=== PATIENT | male | born 1990 | race African-American/Black ===

== ENCOUNTER 2025-11-13 09:49 | Emergency (ER) | payer BC, SELFPAY ==
[2025-11-13 10:00] VITALS: BP 146/84; PULSE 98; RESP 20; TEMP 36.7; O2SAT 100
--- NOTE | 2025-11-13 10:06 | ED_ITS ---
HPI - Male Genitourinary General Chief complaint: Urogenital-Male Stated complaint: Urinary Problem Time Seen by Provider: 11/13/25 10:10 Source: patient, RN notes reviewed and old records reviewed Mode of arrival: ambulatory Limitations: no limitations History of Present Illness HPI Narrative: 35year old male presents to express care with some stinging with urination and frequency for a few days and since yesterday has had some right lower back pain. Patient has been taking AZO for his symptoms with last dose early today and has also drank some Pedialyte. Patient denies any penis discharge states that he benavidez s had unprotected intercourse with 2 woman over past months and would like checked for STD's. Patient reports that he has had an urinary tract infection in the past. Patient reports no pain swelling or any testicle pain. MD Complaint: dysuria (frequency, right lower back pain yesterday) Onset (ago): day(s) (few days) Severity scale (1-10): 4 Quality: other (sting) Related Data Home Medications ?Medication ?Instructions ?Recorded ?Confirmed ?Last Taken ?Type aripiprazole 2 mg tablet mg 11/13/25 Unknown History buspirone 15 mg tablet mg 11/13/25 Unknown History fluoxetine 10 mg capsule mg 11/13/25 Unknown History Allergies Allergy/AdvReac Type Severity Reaction Status Date / Time No Known Allergies Allergy Verified 11/13/25 10:08 Review of Systems Review of Systems: CONSTITUTIONAL: Denies fever, chills, or sweats. CARDIOVASCULAR: Denies chest pain, palpitations, or edema. RESPIRATORY: Denies cough or dyspnea. GASTROINTESTINAL: Denies abdominal pain, nausea, vomiting, or diarrhea. GENITOURINARY: Reports dysuria, frequency, urgency. reports some right flank pain denies any hematuria. SKIN: Denies rash or itching. MUSCULOSKELETAL: right lower back pain or myalgia. right CVA tenderness NEUROLOGIC: Denies headache All systems reviewed & are unremarkable except as noted in HPI and below PMFSH Past Medical History Medical History (Updated 11/13/25 @ 19:07 by Kayleen Heaton APRN) Bipolar 1 disorder Depression Anxiety Social History Social History (Updated 11/13/25 @ 19:04 by Kayleen Heaton APRN) Smoking status: Current every day smoker Tobacco type: cigarettes Alcohol intake: current Alcohol use details: rare alcohol Substance use type: marijuana Living arrangements: with family Gender identity (if verbalized by the patient): Male Comments At time of signature, agree with nursing past medical, surgical, social and family history. There is no relevant family history pertinent to the presenting complaint Exam Narrative: GENERAL: Well-appearing, well-nourished, and in no acute distress. HEAD: Normocephalic, atraumatic. NECK: Supple.no lymphadenopathy CHEST: Clear to auscultation. No respiratory distress.SAO2 100% on room air HEART: Regular rate and rhythm. No murmur heard. Normal peripheral pulses. ABDOMEN: Soft, nontender, nondistended, normal active bowel sounds. right CVA tenderness with stinging with urination with no penis drainage or any pain swelling or redness to testicles EXTREMITIES: Normal range of motion. No edema. SKIN: Warm, dry, no rash. NEURO: No focal deficits. Alert and oriented x3. Course Course Level of Care: Express Care Visit Vital Signs Vital signs: Vital Signs Temperature 36.7 C 11/13/25 10:00 Pulse Rate 98 11/13/25 10:00 Respiratory Rate 20 11/13/25 10:00 Blood Pressure 146/84 H 11/13/25 10:00 Pulse Oximetry 100 11/13/25 10:00 Oxygen Delivery Room Air 11/13/25 10:00 Temperature 36.7 C 11/13/25 10:00 Pulse Rate 98 11/13/25 10:00 Respiratory Rate 20 11/13/25 10:00 Blood Pressure 146/84 H 11/13/25 10:00 Pulse Oximetry 100 11/13/25 10:00 Oxygen Delivery Room Air 11/13/25 10:00 reviewed [facility] Narrative Medical decision making narrative: Patient reports to Express care with complaints of stinging with urination for a few days with some right flank pain yesterday, urine dip with no leukocytes or blood noted with culture sent. Patient also request urine for STD's sent. Patient reports not testicle pain swelling or redness denies any discharge. Anticipatory guidance and reasons to seek care in the ED reviewed with patient. Differential Diagnosis Differential Diagnosis: Differential diagnostic considerations for male genitourinary issues include urinary tract infection, priapism, epididymitis, prostatitis, acute retention of urine, inguinal hernia, STI exposure, testicular torsion, Mary Jo?s gangrene. Lab Data [facility] Lab Attestation statement: I personally reviewed the patient's lab results. Lab results narrative: urine dip reviewed with urine yellow and cloudy. culture sent urine for STD's sent and results pending for Gonorrhea. chlamydia, trichomonas Labs: Lab Results 11/13/25 Range/Units 10:14 POC Urine Color Yellow POC Urine Clarity Cloudy POC Urine pH 7.0 POC Ur Specif Fifty Six 1.020 POC Urine Protein Negative (Negative) POC Ur Glucose (UA) Negative (Negative) POC Urine Ketones Negative (Negative) POC Urine Blood Negative (Negative) POC Urine Nitrite Negative (Negative) POC Urine Bilirubin Negative (Negative) POC Urine Urobilinogen 1.0 POC U Leukocyte Esteras Negative (Negative) reviewed Critical Care Time Critical Care Time Critical Care Time: No Discharge Plan Discharge Clinical Impression: Urethritis, Screening for STDs (sexually transmitted diseases) Patient Disposition: Home Condition: Stable Instructions: Sexually Transmitted Diseases (ED), Urethritis (ED) Additional Instructions: Increase fluids especially cranberry juice and water Avoid caffeine and carbonated beverage Tylenol/ibuprofen for pain or fever Follow-up with her primary care provider if further problems or concerns Recheck if you have fever over 101, nausea and vomiting. urine will be sent for STDs and you will be notified as soon as available results and after treatment is required prescriptions will be sent If your symptoms persist, change or worsen significantly before you can contact your personal physician then please, without delay, go to the emergency department for further evaluation. Follow-up with PCP in 7-10 days or sooner if needed Follow up with PCP soon in regards to your blood pressure which is elevated above threshold for referral. Blood pressure above 120/80 may indicate pre- hypertension.146/64 abstain from sexual activity until STD results are available if positive must abstain from sex for 2 weeks after completion of antibiotics Use condoms Patient Language: Uzbek Prescriptions: No Action fluoxetine 10 mg capsule buspirone 15 mg tablet aripiprazole 2 mg tablet Follow-up/Referrals: PHYSICIAN,BLENDER/BRAZE APPLICATOR [Primary Care Provider, Internal Medicine] Time of Disposition: 10:35 Quality Yuniel Coma Scale Eyes: Open Verbal: Oriented and Alert Motor: Follows Commands [place] Coma Total Score: 15
--- OUTSIDE RECORDS SUMMARY | 2025-11-13 10:10 | XMS_ITS | Encounter Summary ---
Author Organization [facility] Address [address] [place] [address] Care Team Providers Care Composite Science Teacher Name Role Phone Alverto Boss MD Primary Care Provider Encounter Details Date Type Department Care Team (Late st Contact Info) Description 09/16/2019 Telephone [facility] ANESTHESIOLOGY [address] [place] [address] Bang Lew MD [address] [place] [address] Social History Tobacco Use Types Packs/Day Years Used Date Smoking Tobacco: Every Day Cigarettes 0.5 9 Smokeless Tobacco: Never Alcohol Use Standard Drinks/Week Comments Yes 1 (1 standard drink = 0.6 oz pur e alcohol) socially/occasionally Sex and Gender Information Value Date Recorded Sex Assigned at Not on file Legal Sex Male 7:03 PM CDT Gender Identity Not on file Sexual Orientation Not on file documented as of this encounter Miscellaneous Notes * Telephone Encounter - Bang Lew MD - 09/16/2019 3:16 PM CDT Called patient about interscalene nerve catheter, patient reports good postoperative analgesia withthe nerve catheter, rates his pain as 5/10 with some moderate motor blockade. No issues with tenderness at the site, no shortness of breath or significant paresthesias. Bang Lew MD Anesthesia PGY 4 09/16/2019 3:17 PM documented in this encounter Plan of Treatment Not on file documented as of this encounter Visit Diagnoses Not on filedocumented in this encounter Care Teams Composite Science Teacher Relationship Specialty Start Date End Date Alverto Boss MD [address] [place] [id number] PCP - General Internal Medicine 04/03/18 documented as of this encounter
--- OUTSIDE RECORDS SUMMARY | 2025-11-13 10:10 | XMS_ITS | Clinical Summary ---
Author Organization [facility] Address [address] [place] [address] Care Team Providers Care Night Baker Name Role Phone Alverto Boss MD Primary Care Provider [phone] Source Comments [facility],non-owned Affiliates and Associated Physician Practices is amultiple site organization consisting of ambulatory clinics and hospital sitesin [place], [place], [place] and [place]. This disclosure is being madepursuant to the Care Everywhere program and may not contain all information available regarding this patient. Last updated 18.[facility] Allergies Active Allergy Reactions Criticality Noted Date Comments Morphine Nausea and/or Vomiting Low 07/09/2019 Medications * Be aware that medications may not be up to date on this document. Alwaysverify current medications with the patient. escitalopram (LEXAPRO) 10 MG tablet TAKE 1 TABLET BY MOUTH EVERY DAY IN THE EVENING 2 9 Active busPIRone (BUSPAR) 10 MG tablet Take 10 mg by mouth 3 times daily Active HYDROcodone-nhung taminophen (NORCO) 5-325 MG tabletIndicatio ns:Moderate to Moderately Severe Pain Take 1 tablet by mouth every 4 hours as needed for Pain Reasons: Moderate to Moderately Severe Pain 40 tablet 9 Active ketorolac (TORADOL) 10 MG tablet Take 1 tablet by mouth every 4 hours as needed for Pain 30 tablet 9 Active Active Problems Problem Noted Date Diagnosed Date Post-op pain Social History Tobacco Use Types Packs/Day Years [...] on file Sexual Orientation Not on file Last Filed Vital Signs Vital Sign Reading Time Taken Comments Blood Pressure 142/75 09/15/2019 1:10 PM CDT Pulse 66 09/15/2019 1:10 PM CDT Temperature 36.7 C (98 F) 09/15/2019 12:25 PM CDT Respiratory Rate 17 09/15/2019 1:10 PM CDT Oxygen Saturation 99% 09/15/2019 1:10 PM CDT Inhaled Oxygen Concentration - - Weight 71.4 kg (157 lb 6.4 oz) 09/15/2019 7:45 A M CDT Height 175.3 cm (5' 9) 09/15/2019 7:45 AM CDT Body Mass Index 23.24 09/15/2019 7:45 AM CDT Plan of Treatment Health Maintenance Due Date Last Done Comments HIV SCREENING 2003 HEPATITIS C SCREENING 08/26/2006 DTAP/TDAP/TD VACCINES (1 - Tdap) 2007 HEPATITIS B VACCINE (1 of 3 - 19+ 3-dose series) 2007 PNEUMOCOCCAL VACCINE (1 of 2 - PCV) 2007 HPV VACCINE (1 - 3-dose SCDM series) 2015 DEPRESSION SCREENING 11/16/2024 COVID-19 VACCINE (1 - 2024-2 6 season) 2025 INFLUENZA VACCINE (#1) 2025 ZOSTER VACCINE (1 of 2) 2038 HIB VACCINE Aged Out No longer eligi ble based on patient's age to complete this topic MENINGOCOCCAL (Group B) VACC INE SHARED DECISION-MAKING Aged Out No longer eligibl e based on patient's age to complete this topic MENINGOCOCCAL GROUPS A/C/Y/W VACCINE Aged Out No longer eligible b ased on patient's age to complete this topic Medical Devices Implanted Type Area Jet Wiper Device Identifier Shelf Expiration Date Model / Serial / Lot [place] Healix Adv Br Dynacord 4.5mm Implanted:Qty: 2 on 09/15/2019 by Hermes Hood MD at [facility] Right: Shoulder [employer] 03/15/2022 [id number] / / [id number] [place] Gryphon Proknot Bcrl Rapide Implanted:Qty: 2 on 09/15/2019 by Hermes Hood MD at [facility] Right: Shoulder [employer] 04/15/2022 [id number] / / [id number] [place] Gryphon Proknot Bcrl Rapide Implanted:Qty: 1 on 09/15/2019 by Hermes Hood MD at [facility] Right: Shoulder [employer] 04/15/2022 [id number] / / [id number] [place] Gryphon Proknot Bcrl Rapide Implanted:Qty: 1 on 09/15/2019 by Hermes Hood MD at [facility] Right: Shoulder [employer] 04/15/2022 [id number] / / [id number] Insurance [facility] Care Teams Night Baker Relationship Specialty Start Date End Date Alverto Boss MD [address] [place] [id number] PCP - General Internal Medicine 04/03/18
--- OUTSIDE RECORDS SUMMARY | 2025-11-13 10:10 | XMS_ITS | Clinical Summary ---
Author Organization [facility] Address [address] [place] [address] Phone Care Team Providers Care Tobacco Farmworker Name Role Phone Carlos Gardner MD Primary Care Provider Allergies Active Allergy Reactions Criticality Noted Date Comments Morphine Nausea Medium 12/02/2023 Medications ondansetron (ZOFRAN-ODT) 4 MG TABLET DISPERSIBLE Take 1 Tablet by mouth every 8 hours as needed for Nausea - 1st line. 10 Tablet 4 Active Additional Information Patient not taking.Reported on 06/28/2024 busPIRone (BUSPAR) 10 MG Tablet Take 10 mg by mouth. 9 Active escitalopram (LEXAPRO) 10 MG Tablet Take 10 mg by mouth. 9 Active lamoTRIgine (LaMICtal) 25 MG Tablet Take 25 mg by mouth daily. 2 Active ondansetron (ZOFRAN-ODT) 4 MG TABLET DISPERSIBLE Take 1 Tablet by mouth every 8 hours as needed for Nausea - 1st line. 5 Tablet 5 Active Active Problems Problem Noted Date Diagnosed Date Lymphadenopathy, inguinal 11/21/2018 Family History Medical History Relation Name Comments Cancer Father pancreatic canc er Heart Disease Mother Hypertension Mother Heart Disease Sister Hypertension Sister Relation Name Status Comments Father Alive Mother Alive Sister Social History Tobacco Use Types Packs/Day Years Used Date Smoking Tobacco: Every Day Cigars Smokeless Tobacco: Never Tobacco Cessation:Ready to Q uit: Not Asked; Counseling Given: Not Answered Alcohol Use Standard Drinks/Week Comments Yes 0 (1 standard drink = 0.6 oz pur e alcohol) occasional Sex and Gender Information Value Date Recorded Sex Assigned at Not on file Legal Sex Male 11:51 PM CDT Gender Identity Not on file Sexual Orientation Not on file Last Filed Vital Signs Vital Sign Reading Time Taken Comments Blood Pressure 123/86 12/22/2024 1:30 AM DIRECTOR [employer] Pulse 72 12/22/2024 1:30 AM DIRECTOR [employer] Temperature 36.3 C (97.3 F) 12/21/2024 9:32 PM DIRECTOR [employer] Respiratory Rate 17 12/21/2024 9:32 PM DIRECTOR [employer] Oxygen Saturation 95% 12/22/2024 1:30 AM DIRECTOR [employer] Inhaled Oxygen Concentration - - Weight 77.1 kg (170 lb) 12/21/2024 9:32 PM DIRECTOR [employer] Height 172.7 cm (5' 8) 12/21/2024 9:32 PM [employer]OR [employer] Body Mass Index 25.85 12/21/2024 9:32 PM DIRECTOR [employer] Plan of Treatment Health Maintenance Due Date Last Done Comments Hepatitis C Virus (HCV) Screening 1988 Varicella Immunization (1 of 2 - 13+ 2-dose series) 2001 Pneumococcal Immunization Combined (1 of 2 - PCV) 2007 Influenza Immunization (#1) 2025 12/07/2012 SARS-COV-2 Immunization (3 - season) 2025 02/06/2021, 01/09/2021 Respiratory Syncytial Virus (RSV) Immunization (Adult) (1 - 1-dose 75+ series) 2063 Hepatitis B Immunization Completed 999, 03/09/1999, 02/02/1999 DTaP/Tdap/Td Immunization Discontinued 2014, 12/29/2006, 02/04/2003, Additional history exists TdaP Immunization Completed 09/10/2015, 12/29/2006 Human Papillomavirus (HPV) Immunization (No Doses Required) Completed Meningococcal Immunization (ACWY) Aged Out No longer eligible based on patient's age to complete this topic Rotavirus Immunization Aged Out No lo nger eligible based on patient's [place] [address] MEDICAID [place] Care Teams Tobacco Farmworker Relationship Specialty Start Date End Date Carlos Gardner MD [address] [facility] , [address] [address] PCP - General Family Medicine 12/02/23
--- OUTSIDE RECORDS SUMMARY | 2025-11-13 10:10 | XMS_ITS | Clinical Summary ---
Author Organization [facility] Address [address] [place] [address] Care Team Providers Care Retail Reset Merchandiser Name Role Phone Carlos Gardner MD Primary Care Provider Allergies Active Allergy Reactions Criticality Noted Date Comments Morphine Vomiting,Nausea only Low 07/09/2019 Medications busPIRone (BUSPAR) 10 mg tablet Take 1 tablet (10 mg total) by mouth 2 (two) times a day 2 09/06/2019 Active escitalopram (LEXAPRO) 10 mg tablet Take 1 tablet (10 mg total) by mouth every evening 2 09/06/2019 Active lamoTRIgine (LaMICtal) 25 mg tablet Take 1 tablet (25 mg total) by mouth daily 03/14/2022 Active lidocaine HCl-hydrocortis on ac 3-0.5 % cream Insert 1 g into the rectum 2 (two) times a day as needed (as needed for pain) 7 g 05/09/2024 Active polyethylene glycol (MIRALAX) 17 gram/dose bulk powder Take 17 g by mouth daily 850 g 05/09/2024 Active HYDROcodone-nhung taminophen (NORCO) 5-325 mg per tabletIndicatio ns:Pain Take 1 tablet by mouth every 6 (six) hours as needed for pain 10 tablet 12/14/2024 Active ibuprofen (ADVIL,MOTRIN) 800 mg tablet Take 1 tablet (800 mg total) by mouth 3 (three) times a day as needed for pain Take with food 30 tablet 12/14/2024 Active Active Problems Problem Noted Date Diagnosed Date Generalized anxiety disorder 12/15/2023 Assessment & Plan (12/15/2023 11:04 AM LUMBER LOADER): - chronic condition, not at goal but better controlled - hx of anxiety, depression, questionable PTSD - hx of suicidal attempts x3, intentional drug overdose, attempt to jump off bridge and self cutting - inpatient hospitalization - [facility] hospitalization inpatient, [place] - Currently on Buspirone 15 mg BID, Citalopram 20 daily, Lamotrigine 25 mg daily - follows with Psychiatry at [facility], being followed every 6 weeks Moderate episode of recurrent major depressive d isorder 12/15/2023 Assessment & Plan (12/15/2023 11:04 AM LUMBER LOADER): - chronic condition, not at goal but better controlled - hx of anxiety, depression, questionable PTSD - hx of suicidal attempts x3, intentional drug overdose, attempt to jump off bridge and self cutting - inpatient hospitalization - [facility] inpatient, [place] - Currently on Buspirone 15 mg BID, Citalopram 20 daily, Lamotrigine 25 mg daily - follows with Psychiatry at [facility], being followed every 6 weeks Preventative health care 12/15/2023 Assessment & Plan (12/15/2023 11:17 AM LUMBER LOADER): - New or chronic worsening conditions: concern for STD exposure, request for sterilization - Mental health: following with Psychiatry at [place] - Dental health: Recommend regular dental care and cleaning. Discussed importance of regular tooth brushing, flossing, and dental visits. 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 04/18/2022 Assessment & Plan (04/18/2022 3:47 PM CDT): - Based on mildly elevated CDR OU - (+) AA, (+) possible family history (?great-grandfather) - IOP wnl on zero classes OU today - Consider glaucoma workup once recovered from the acute OD injury/ traumatic iritis Resolved Problems Problem Noted Date Diagnosed Date Resolved Date 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 Attempted suicide 09/21/2019 12/15/2023 Assessment & Plan (09/21/2019 7:00 PM LUMBER LOADER): Initially reported to ED staff that he overdosed on Vicodin and Buspar, but on further questioning said that he took an unknown amount of ketorolac and citalopram instead of Vicodin (still reports taking Buspar). Poison control contacted in ED. Psychiatry and social work consulted. Suicide precautions. Continue IV fluids and recheck kidney function tomorrow because of reported ketorolac overdose. 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 Medical History Medical History Date Comments Depression Family History Medical History Relation Name Comments COPD Father Pancreatic cancer Father Benign brain tumor Mother Fibromyalgia Mother Hypertension Mother Cancer Other 1 Family history of Cancer; Hypertension Other 2 Family history of Hypertension; Hypertension Sister Relation Name Status Comments Father Mother Other 1 Other 2 Sister Social History Tobacco Use Types Packs/Day Years Used Date Smoking Tobacco: Every Day Cigarettes Smokeless Tobacco: Never Tobacco Cessation:Ready to Q uit: No; Counseling Given: Yes Alcohol Use Standard Drinks/Week Comments Yes 0 (1 standard drink = 0.6 oz pur e alcohol) socially AUDIT-C Answer Date Recorded Q1: How often do you have a drink containing alcohol? Never 12/15/2023 Q2: How many drinks containi ng alcohol do you have on a typical day when you are drinking? Patient does not drink Q3: How often do you have si x or more drinks on one occasion? Never 12/15/2023 PHQ-2 Answer Date Recorded PHQ-2 Total Score (If total score is 3 or more points, staff should administer the PHQ-9) 2 12/15/2023 Personal Safety Answer Date Recorded Have you ever been in or are you currently in a harmful physical or emotional relationship or is someone making you feel afraid or unsafe? Denies 12/14/2024 Sex and Gender Information Value Date Recorded Sex Assigned at Not on file Legal Sex Male 11:28 PM LUMBER LOADER Gender Identity Not on file Sexual Orientation Not on file Last Filed Vital Signs Vital Sign Reading Time Taken Comments Blood Pressure 111/73 12/14/2024 11:52 AM LUMBER LOADER Pulse 69 12/14/2024 11:52 AM LUMBER LOADER Temperature 36.9 C (98.5 F) 12/14/2024 11:52 AM LUMBER LOADER Respiratory Rate 16 12/14/2024 11:52 AM LUMBER LOADER Oxygen Saturation 98% 12/14/2024 11:52 AM LUMBER LOADER Inhaled Oxygen Concentration - - Weight 79.8 kg (176 lb) 12/14/2024 11:52 AM LUMBER LOADER Height 172.7 cm (5' 8) 12/14/2024 11:52 AM LUMBER LOADER Body Mass Index 26.76 12/14/2024 11:52 AM LUMBER LOADER Plan of Treatment Health Maintenance Due Date Last Done Comments Hepatitis C Screening 1988 Varicella Vaccines (1 of 2 - 13+ 2-dose series) 2001 Pneumococcal vaccine <65 (1 of 2 - PCV) 2007 HPV Vaccines (1 - 3-dose SCD M series) 2015 Depression Screening 12/15/2024 12/15/2023, 09/22/2019, 09/21/2019, Additional history exists Regular Well Visit/Exam 18-64 12/15/2024 12/15/2023 Covid-19 Vaccine (3 - 2024-2 6 season) 2025 02/06/2021, 01/09/2021 Influenza Vaccine (#1) 2025 12/07/2012 DTaP/Tdap/Td Vaccine (7 - Td or Tdap) 09/10/2025 09/10/2015, 02/04/2003, 03/08/1993, Additional history exists Hepatitis B Screening Completed 08/10/1999 , 03/09/1999, 02/02/1999 Insurance [facility] [employer] [facility] Advance Directives For more information, please contact: [phone] * Full Code (Latest Code Status on File) Date Activated Date Inactivated Comments 09/21/2019 5:24 PM 09/22/2019 11:03 PM Care Teams Retail Reset Merchandiser Relationship Specialty Start Date End Date Carlos Gardner MD PCP - General Family Medicine 12/15/23
--- OUTSIDE RECORDS SUMMARY | 2025-11-13 10:10 | XMS_ITS | Patient Health Record ---
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 Name Role Phone Miriam Lyons Primary Care Provider [phone] Allergies Allergen (clinical drug ingredient) Drug/Non Drug Allergy documented on EMR Reaction Allergy Type Onset Date Status morphine Morphine Unknown Drug Allergy Active Reason For Referral Addressed Referral details can be found under 'Consultation Request Notes' section Medications Medication SIG (Take, Route, Frequency, Duration) Notes Start Date End Date Diagnosis (ICD Code) Status FLUoxetine HCl 10 MG Capsule 1 capsule Orally Once a day; Duration: 30 days Generalized anxiety disorder (ICD_10 - F41.1) Active ARIPiprazole 2 MG Tablet 1 tablet Orally Once a day; Duration: 30 days Bipolar 1 disorder (ICD_10 - F31.9) Active busPIRone HCl 15 MG Tablet 1 tablet Orally Twice a day; Duration: 30 days Generalized anxiety disorder (ICD_10 - F41.1) Active Social History Tobacco Use: Social History Observation Description Date Details (start date - stop date) Never Smoker NA - NA Sex Observation Social History Observation Description Sex Observation Male Sexual Orientation Social History Observation Description Sexual Orientation Straight or heterose xual Gender Identity Social History Observation Description Gender Identity Male Social History Miscellaneous Social Info Question Answer Notes Method of learning: Preferred method of learning: Read ing,Demonstration Primary Social History Social Info Question Answer Notes Living Arrangement Living Arrangement: Independent Cynthia ing Is this a supportive environment? Yes Single Question Alcohol Screening How many times in the past year have you had (4 for women, or 5 for men) or more drinks in a day? 0 Employment Status Employment Status: Employed [employer] Illicit Substance Usage Illicit Substance Usage: Yes Substance Used: Cannabis Frequency Cannabis is used: weekly 2-3 times Interested in quitting: No Alcohol Use Alcohol Use Frequency: Monthly or less Tobacco Use: Social Info Question Answer Notes Tobacco Control (Standard) Tobacco use: Nonsmoker Problems Problem Type SNOMED Code ICD Code Dates Problem Status W/U Status Risk Notes Problem Generalized anxiety disorder (19064689) Generalized anxiety disorder (F41.1) Added On:2021 Active confirmed Problem Bipolar 1 disorder (219820088) Bipolar 1 disorder (F31.9) Added On:2021 Active confirmed Problem Cannabis abuse (95700609) Cannabis abuse (F12.10) Added On:2021 Active confirmed Problem Overweight (564271233) Over weight (E66.3) Added On:2024 Active confirmed Problem Posttraumatic stress disorder (03654570) Post traumatic stress disorder (PTSD) (F43.10) Added On:2021 Active confirmed Vital Signs Vital Sign Value Notes Appt Date Heart Rate 66 /min 07/31/2025 Temperature 97.6 degrees Fahrenheit 07/17 Respiratory Rate 16 /min 07/31/2025 Blood pressure diastolic 78 mm Hg Oximetry 100 % 07/31/2025 Height 68 inches in 07/31/2025 Blood pressure systolic 108 mm Hg 07/17 Weight 173.8 lbs lbs 07/31/2025 BMI 26.42 kg/m2 07/31/2025 Encounters Date Time Type Facility Location Provider Diagnosis 10:00 AM Office Visit [address] [place] [address] Miriam Lyons 5 03:00 PM Telehealth Office Visit, Est Pt., Level 4 ([id number]) [place] [address] [place] [address] Miriam Lyons Generalized anxiety disorder F41.1 ; Bipolar 1 disorder F31.9 ; Post traumatic stress disorder (PTSD) F43.10 and Cannabis abuse F12.10 5 03:00 PM Telehealth Office Visit, Est Pt., Level 4 ([id number]) [address] [address] Miriam Lyons Generalized anxiety disorder F41.1 ; Bipolar 1 disorder F31.9 ; Post traumatic stress disorder (PTSD) F43.10 and Cannabis abuse F12.10 5 10:20 AM Office Visit, Est Pt., Level 4 ([id number]) [address] [address] Miriam Lyons Generalized anxiety disorder F41.1 ; Bipolar 1 disorder F31.9 ; Post traumatic stress disorder (PTSD) F43.10 and Cannabis abuse F12.10 5 10:00 AM Office Visit, Est Pt., Level 4 ([id number]) [address] [address] Miriam Lyons Over weight E66.3 ; Generalized anxiety disorder F41.1 ; Bipolar 1 disorder F31.9 ; Post traumatic stress disorder (PTSD) F43.10 and Cannabis abuse F12.10 5 03:32 PM Telephone Encounter [address] [address] Miriam Lyons Assessments Encounter Date Diagnosis (ICD Code) Assessment Notes Treatment Notes Section Notes 12/20/2024 Generalized anxiety disorder (ICD-10 - F41.1) Discussed r/b/se including risk of german. Client v/u and agreement. 01/11/2025 Generalized anxiety disorder (ICD-10 - F41.1) Discussed r/b/se including risk of german. Client v/u and agreement. 04/24/2025 Generalized anxiety disorder (ICD-10 - F41.1) Discussed r/b/se including risk of german. Client v/u and agreement. 07/31/2025 Over weight (ICD-10 - E66.3) 07/31/2025 Generalized anxiety disorder (ICD-10 - F41.1) Discussed r/b/se including risk of german. Client v/u and agreement. 12/20/2024 Bipolar 1 disorder (ICD-10 - F31.9) Take as prescribed. Reviewed purpose (mood stability), benefits, and risks - low blood pressure, metabolic syndrome with high cholesterol or high blood sugars, change in cardiac conduction, nausea, vomiting, temporary or permanent movement disorders, and akathisia. 01/11/2025 Bipolar 1 disorder (ICD-10 - F31.9) Take as prescribed. Reviewed purpose (mood stability), benefits, and risks - low blood pressure, metabolic syndrome with high cholesterol or high blood sugars, change in cardiac conduction, nausea, vomiting, temporary or permanent movement disorders, and akathisia. 04/24/2025 Bipolar 1 disorder (ICD-10 - F31.9) Take as prescribed. Reviewed purpose (mood stability), benefits, and risks - low blood pressure, metabolic syndrome with high cholesterol or high blood sugars, change in cardiac conduction, nausea, vomiting, temporary or permanent movement disorders, and akathisia. Client to monitor gambling. States not an issue and not wanting to change meds at this time. 07/31/2025 Bipolar 1 disorder (ICD-10 - F31.9) Take as prescribed. Reviewed purpose (mood stability), benefits, and risks - low blood pressure, metabolic syndrome with high cholesterol or high blood sugars, change in cardiac conduction, nausea, vomiting, temporary or permanent movement disorders, and akathisia. Client to monitor gambling. States not an issue and not wanting to change meds at this time. 12/20/2024 Post traumatic stress disorder (PTSD) (ICD-10 - F43.10) Encouraged therapy. Encouraged coping mechanisms. 01/11/2025 Post traumatic stress disorder (PTSD) (ICD-10 - F43.10) Encouraged therapy. Encouraged coping mechanisms. 04/24/2025 Post traumatic stress disorder (PTSD) (ICD-10 - F43.10) Encouraged therapy. Encouraged coping mechanisms. 07/31/2025 Post traumatic stress disorder (PTSD) (ICD-10 - F43.10) Encouraged therapy. Encouraged coping mechanisms. 12/20/2024 Cannabis abuse (ICD-10 - F12.10) Discussed with patient that taking or using herbs, such as marijuana, and/or vitamins and supplements may interfere with or alter the way prescription medications work in the body or cause adverse reactions. Patient voiced understanding. 01/11/2025 Cannabis abuse (ICD-10 - F12.10) Discussed with patient that taking or using herbs, such as marijuana, and/or vitamins and supplements may interfere with or alter the way prescription medications work in the body or cause adverse reactions. Patient voiced understanding. 04/24/2025 Cannabis abuse (ICD-10 - F12.10) Discussed with patient that taking or using herbs, such as marijuana, and/or vitamins and supplements may interfere with or alter the way prescription medications work in the body or cause adverse reactions. Patient voiced understanding. 07/31/2025 Cannabis abuse (ICD-10 - F12.10) Discussed with patient that taking or using herbs, such as marijuana, and/or vitamins and supplements may interfere with or alter the way prescription medications work in the body or cause adverse reactions. Patient voiced understanding. 12/20/2024 Other Reasons, potential benefits, potential risks, interactions and side effects of all medications were discussed. The Patient/Guardian asked appropriate questions, appeared to understand the answers, and decided to accept the treatment and continue being followed. Alternatives and expected course without treatment were reviewed. The Patient/Guardian is aware of the need to contact the office or return for an earlier appointment if any problems or concerns arise. May also contact the 24-hour crisis hotline ([facility]), refer to the closest emergency room or call 911 if new symptoms arise of existing symptoms worsen. The Patient/Guardian is aware that this would apply to symptoms like: suicidal ideation, homicidal ideation, high risk behaviors, manic symptoms, psychotic symptoms, physical symptoms, or any other symptoms that may be dangerous to self or others. Greater than 50% of time spent on coordination and counseling where psychopharmacology as well as psychotherapeutic interventions were discussed along with review of treatments in the past. Education provided concerning need for adequate hydration. Patient/Guardian verbalized understanding of education, treatment plan and follow up. This session was completed telephonically with client/parental/guardian consent: Unable to determine movement status, assess appearance, affect, AIMS, or vital signs. 01/11/2025 Other Wilbur agreement to continue current regimen. Reasons, potential benefits, potential risks, interactions and side effects of all medications were discussed. The Patient/Guardian asked appropriate questions, appeared to understand the answers, and decided to accept the treatment and continue being followed. Alternatives and expected course without treatment were reviewed. The Patient/Guardian is aware of the need to contact the office or return for an earlier appointment if any problems or concerns arise. May also contact the 24-hour crisis hotline ([facility]), refer to the closest emergency room or call 911 if new symptoms arise of existing symptoms worsen. The Patient/Guardian is aware that this would apply to symptoms like: suicidal ideation, homicidal ideation, high risk behaviors, manic symptoms, psychotic symptoms, physical symptoms, or any other symptoms that may be dangerous to self or others. Greater than 50% of time spent on coordination and counseling where psychopharmacology as well as psychotherapeutic interventions were discussed along with review of treatments in the past. Education provided concerning need for adequate hydration. Patient/Guardian verbalized understanding of education, treatment plan and follow up. This session was completed telephonically with client/parental/guardian consent: Unable to determine movement status, assess appearance, affect, AIMS, or vital signs. 04/24/2025 Other Reasons, potential benefits, potential risks, interactions and side effects of all medications were discussed. The Patient/Guardian asked appropriate questions, appeared to understand the answers, and decided to accept the treatment and continue being followed. Alternatives and expected course without treatment were reviewed. The Patient/Guardian is aware of the need to contact the office or return for an earlier appointment if any problems or concerns arise. May also contact the [facility]), refer to the closest emergency room or call 911 if new symptoms arise of existing symptoms worsen. The Patient/Guardian is aware that this would apply to symptoms like: suicidal ideation, homicidal ideation, high risk behaviors, manic symptoms, psychotic symptoms, physical symptoms, or any other symptoms that may be dangerous to self or others. Greater than 50% of time spent on coordination and counseling where psychopharmacology as well as psychotherapeutic interventions were discussed along with review of treatments in the past. Education provided concerning need for adequate hydration. Patient/Guardian verbalized understanding of education, treatment plan and follow up. 07/31/2025 Other Reasons, potential benefits, potential risks, interactions and side effects of all medications were discussed. The Patient/Guardian asked appropriate questions, appeared to understand the answers, and decided to accept the treatment and continue being followed. Alternatives and expected course without treatment were reviewed. The Patient/Guardian is aware of the need to contact the office or return for an earlier appointment if any problems or concerns arise. May also contact the 24-hour crisis hotline ([facility]), refer to the closest emergency room or call 911 if new symptoms arise of existing symptoms worsen. The Patient/Guardian is aware that this would apply to symptoms like: suicidal ideation, homicidal ideation, high risk behaviors, manic symptoms, psychotic symptoms, physical symptoms, or any other symptoms that may be dangerous to self or others. Greater than 50% of time spent on coordination and counseling where psychopharmacology as well as psychotherapeutic interventions were discussed along with review of treatments in the past. Education provided concerning need for adequate hydration. Patient/Guardian verbalized understanding of education, treatment plan and follow up. Plan Of Treatment No Information Insurance Providers Payer Name Payer Address Payer Phone Subscriber Number Group Number Insured Name Patient Relationship to Insured Coverage Start Date Coverage End Date [facility] [employer] [address] [place] [address] [id number] Sanchez Delvin Self - patient is the insured 2 2 [facility] [employer] [facility] [address] [place] [address] [id number] Delvin Bradford Self - patient is the insured 2 2 [facility] [address] [place] [address] [phone] [id number] Delvin Bradford Self - patient is the insured 4 [employer] [address] [place] [address] [id number] Sanchez Delvin Self - patient is the insured 3 3 Medical (General) History Surgical History Surgery Date(Month/Year) right shoulder repair 08/2020 Hospitalization History Reason Date(Month/Year) [facility]/Suicide attempt 09/2020
[2025-11-13 10:21] LABS: EDUAAPPEAR Cloudy; EDUABILI Negative (Negative); EDUABLOOD Negative (Negative); EDUACOLOR1 Yellow; EDUAGLUCOSE Negative (Negative); EDUAKETONE Negative (Negative); EDUALEUKO Negative (Negative); EDUANITRATE Negative (Negative); EDUAPH 7.0; EDUAPROTEIN Negative (Negative); EDUASPGRAVITY 1.020; EDUAUROBILI 1.0
[2025-11-13 20:06] LABS: Trichomonas Vag PCR NOT DETECTED (NOT DETECTE)
== END 2025-11-13 10:38 | disposition home or self-care (01) ==
PROVIDERS: Emergency Provider Registered Nurse
DX: Z11.3 Encounter for screening for infections with a predominantly sexual mode of transmission (principal); N34.2 Other urethritis; F31.89 Other bipolar disorder; F41.8 Other specified anxiety disorders; F17.210 Nicotine dependence, cigarettes, uncomplicated
CPT/HCPCS: 81003; 87086; 87491; 87591; 87661; 99213; G0463